=== PATIENT | male | born 1995 | race Caucasian/White ===

== ENCOUNTER 2017-01-31 22:43 | Emergency (ER) | payer MEDICAID, OTHER ==
[2017-01-31 22:56] VITALS: BP 122/36
[2017-01-31] MEDS ORDERED: Bacitracin Oint 1 GM U/D Packet TOP ONE (23:42)
[2017-01-31] MEDS ORDERED: Lidocaine 1% with EPINEPHrine 1:100,000 50 ML MDV SUBCUT STA (23:42)
[2017-01-31] MEDS ORDERED: Diphtheria,Pertussis(Acell),Tetanus Vaccine 0.5 ML SDV IM ONE (23:42)
--- NOTE | 2017-01-31 23:44 | EDM.PDOC ---
ED HPI GENERAL MEDICAL PROBLEM - General Chief Complaint: Laceration Stated Complaint: IN [facility]USTODY OF [facility] CUT FOREHEAD Time Seen by Provider: 01/31/17 23:38 Source of Information: Reports: Patient, Police, RN Notes Reviewed History Limitations: Reports: No Limitations - History of Present Illness INITIAL COMMENTS - FREE TEXT/NARRATIVE: 21-year-old gentleman presents emergency department today via law enforcement he is obviously intoxicated he is currently under arrest he self-inflicted a head wound while he banged his head on the back of the case in the squad car - Related Data Allergies Allergy/AdvReac Type Severity Reaction Status Date / Time No Known Allergies Allergy Verified 01/31/17 22:56 Home Meds: Home Meds NK [No Known Home Meds] 01/31/17 [History] Past Medical History - Past Health History Medical/Surgical History: Denies Medical/Surgical History Social & Family History - Tobacco Use Smoking Status *Q: Current Status Unknown - Recreational Drug Use Recreational Drug Use: Yes ED ROS GENERAL - Review of Systems Review Of Systems: See Below Constitutional: Reports: No Symptoms HEENT: Reports: No Symptoms Respiratory: Reports: No Symptoms Cardiovascular: Reports: Dyspnea on Exertion GI/Abdominal: Reports: No Symptoms : Reports: No Symptoms Skin: Reports: Wound Neurological: Reports: No Symptoms ED EXAM, SKIN/RASH Exam: See Below Exam Limited By: Intoxication Eye Exam: Bilateral Eye: Normal Inspection Head: Normocephalic, Other (4 cm laceration forehead right side) Neck: Normal Inspection, Supple, Non-Tender, Full Range of Motion Respiratory/Chest: No Respiratory Distress ED SKIN PROCEDURES - Laceration/Wound Repair Face Lac/wound length in cm: 3.5 Appearance: Subcutaneous, Clean Distal NVT: Neuro & Vascular Intact, No Tendon Injury Anesthetic Type: Local Local Anesthesia - Lidocaine (Xylocaine): 1% With EPI Local Anesthetic Volume: 3cc Skin Prep: Chlorhexidine (Hibiciens) Saline irrigation (cc's): 60 Exploration/Debridement/Repair: Wound Explored, in a Bloodless Field, Explored to Base Closed with: Sutures Suture Size: 4-0 # of Sutures: 1 Suture Type: Running Suture Size: 4-0 # of Sutures: 2 Repaired with: Vicryl Sterile Dressing Applied: Nurse Tetanus Status Addressed: Yes (2017) Complications: No Course - Vital Signs Last Recorded V/S: Last Vital Signs Temp 97.3 F 01/31/17 22:49 Pulse 116 H 01/31/17 22:49 Resp 20 01/31/17 22:49 BP 122/36 L 01/31/17 22:49 Pulse Ox 95 01/31/17 22:49 - Orders/Labs/Meds Orders: Active Orders 24 hr Category Date Time Status Vaccines to be Administered [RC] PER UNIT ROUTINE Care 01/31/17 23:42 Active Meds: Medications Discontinued Medications Generic Name Dose Route Start Last Admin Trade Name Trinity PRN Reason Stop Dose Admin Bacitracin 1 dose 01/31/17 23:42 01/31/17 23:51 Bacitracin Oint 1 Gm TOP 01/31/17 23:43 1 dose ONETIME ONE Administration Diphtheria/Tetanus/Acell Pertussis 0.5 ml 01/31/17 23:42 01/31/17 23:49 Adacel IM 01/31/17 23:43 0.5 ml .ONCE ONE Administration Lidocaine/Epinephrine 20 ml 01/31/17 23:42 01/31/17 23:50 Xylocaine 1% With Epinephrine 1:100,000 SUBCUT 01/31/17 23:43 20 ml NOW STA Administration Departure - Departure Time of Disposition: 00:14 Disposition: Home, Self-Care 01 Condition: good Clinical Impression: Laceration of forehead Qualifiers: Encounter type: initial encounter Qualified Code(s): S01.81XA - Laceration without foreign body of other part of head, initial encounter - Discharge Information Forms: ED Department Discharge Additional Instructions: Suture removal 5-6 days, follow wound care instruction sheet, call return to the emergency department worsening of symptoms - My Orders Last 24 Hours: My Active Orders 01/31/17 23:42 Vaccines to be Administered [RC] PER UNIT ROUTINE - Assessment/Plan Last 24 Hours: My Active Orders 01/31/17 23:42 Vaccines to be Administered [RC] PER UNIT ROUTINE Plan: Assessment Acuity = acute Site and laterality = 3.5 cm laceration forehead Etiology = secondary self-induced trauma Manifestations = bleeding not controlled Location of injury = back of the police car Lab values = none Plan Suture removal in 5-6 days, follow wound care instruction sheet Patient was in agreement with the plan all questions were answered, they were instructed to return to the emergency department or call for worsening symptoms. This note was dictated using dragon voice recognition software please call with any questions.
== END 2017-02-01 00:22 | disposition home or self-care (01) ==
LOC: JP.ED 22:43
DX: S01.81XA Laceration without foreign body of other part of head, initial encounter (principal); Z23 Encounter for immunization; X58.XXXA Exposure to other specified factors, initial encounter
CPT/HCPCS: 12013; 90471; 90715; 99283-25